=== PATIENT | female | born 1950 | race Caucasian/White ===

== ENCOUNTER → 2017-01-27 | Outpatient (CLI) | payer MEDICARE, MEDICAID ==
[~2017-01-27] MED LIST: AMITRIPTYLINE H25 M1 PO; AMLODIPINE5 MG PO; AMOXICILLIN 8751 TAB PO; ANTI-DIARRHEAL2 MG PO; ASPIR-LOW81 MG PO; ASPIRIN E.C. 8181 MG PO; ATENOLOL; BENTYL 20MG20 MG/TAB PO; BIOTIN1000 MCG PO; CARDI-OMEGA1000 MG PO; CARTIA XT240 MG PO; CARVEDILOL12.5 MG PO; CENTRUM SILVER1 TA1 PO; COREG 25MG25 MG/TAB PO; CORICIDIN COUGH1 TAB PO; COZAAR 50MG50 MG/TAB PO; DOXYCYCLINE 10100 MG PO; FISH OIL CONC1000 MG PO; GARLIC SUPPLEM300 MG; GLUCOPHAGE1000 MG PO; HCTZ 25MG25 MG PO; IBU800 M1 PO; LISINOPRIL10 MG PO; METFORMIN500 MG PO; NITROQUICK0.4 MG; NITROQUICK0.4 MG SL; NORCO 325 MG-51 TAB PO; NORVASC 10MG10 MG PO; NORVASC2.5 MG PO; OCUFLOX OPHTH DR5 ML OD; ONGLYZA5 MG PO; PAMELOR 25MG25 MG PO; PAMINE2.5 MG PO; PRILOSEC; PRILOSEC 20MG20 MG PO; QUESTRAN4 GM/9 GM PO; TYLENOL W/COD1 UDTAB PO; VIBERZI75 MG PO; VITAMIN B1250 MCG; ZOFRAN 4MG T4 MG/TAB PO
== END ==
LOC: MC.RAD 09:55
DX: Z12.31 Encounter for screening mammogram for malignant neoplasm of breast (principal); Z98.890 Other specified postprocedural states

== ENCOUNTER 2018-01-21 09:52 | Emergency (ER) | payer MEDICARE, MEDICAID ==
[~2018-01-21] VITALS: Ht 170.2 cm; Wt 88.2 kg
[2018-01-21] MEDS ORDERED: ASPIRIN 81M81 MG/TA2 PO (10:20)
[2018-01-21 10:37] LABS: BASO % 0.4 % (0.0-2.0); EOS # 0.1 (0.0-0.7); EOS % 2.8 % (0-4.0); GRAN # 2.9 (1.4-6.5); GRAN % 57.6 % (42.2-75.2); HEMOGLOBIN 12.7 g/dl (12.5-16.0); LYMPH # 1.3 (1.2-3.4); LYMPH % 26.1 % (20.0-51.0); MEAN CELL VOLUME 83 fl (80.0-100.0); MEAN CORPUSCULAR HEMOGLOBIN 29 pg (27.0-31.0); MEAN CORPUSCULAR HGB CONC 35 g/dl (33.0-37.0); MEAN PLATELET VOLUME 11.6 fl (7.4-10.4); MONO # 0.6 (0.1-0.6); MONO % 12.7 % (1.7-9.3); PLATELET COUNT 176 K/mm3 (130-400); RED BLOOD COUNT 4.43 M/mm3 (4.10-5.30)
[2018-01-21 10:39] LABS: HEMATOCRIT 36.8 % (37.0-47.0)
[2018-01-21 10:48] LABS: ALANINE AMINOTRANSFERASE 25 U/L (9-52); ALBUMIN 3.8 gm/dL (3.5-5.0); ALKALINE PHOSPHATASE 89 U/L (50-136); ANION GAP 14 mmol/L (7-16); AST,SGOT 27 U/L (15-37); BILIRUBIN,TOTAL 0.5 mg/dL (0.0-1.0); BLOOD UREA NITROGEN 25 mg/dL (7-17); C-REACTIVE PROTEIN 1.8 mg/dL (0.0-0.9); CALCIUM 9.5 mg/dL (8.4-10.2); CARBON DIOXIDE 25 mmol/L (22-30); CHLORIDE 99 mmol/L (98-107); CREATININE, serum 0.92 mg/dL (0.52-1.25); GLUCOSE 300 mg/dL (74-106); SODIUM 138 mmol/L (137-145); TOTAL PROTEIN 7.7 gm/dL (6.4-8.2)
[2018-01-21 11:01] LABS: TROPONIN-I < 0.012 ng/mL (0.000-0.034)
[2018-01-21] MEDS ORDERED: PREDNISONE20 MG PO (11:50)
[2018-01-21] MEDS ORDERED: ZITHROMAX 250M250 MG PO (11:50)
[2018-01-21 12:20] VITALS: BP 137/75; PULSE 64; TEMP 98.1
== END 2018-01-21 12:20 | disposition home or self-care (01) ==
LOC: COL.ER 09:52
PROVIDERS: Emergency Medicine
DX: J20.9 Acute bronchitis, unspecified (principal); E11.9 Type 2 diabetes mellitus without complications; I10 Essential (primary) hypertension; Z79.84 Long term (current) use of oral hypoglycemic drugs; Z79.82 Long term (current) use of aspirin
CPT/HCPCS: J7512

== ENCOUNTER → 2018-02-06 | Outpatient (CLI) | payer MEDICARE, MEDICAID ==
[~2018-02-06] MED LIST changes: +ASPIRIN 81M81 MG/TA2 PO; +PREDNISONE20 MG PO; +ZITHROMAX 250M250 MG PO
== END ==
LOC: MC.RAD 10:20
DX: Z12.31 Encounter for screening mammogram for malignant neoplasm of breast (principal)

== ENCOUNTER 2018-03-21 22:48 | Emergency (ER) | payer MEDICARE, MEDICAID ==
[~2018-03-21] VITALS: Ht 170.2 cm; Wt 90.0 kg
[2018-03-21 22:57] VITALS: TEMP 97.7
[2018-03-22] MEDS ORDERED: TYLENOL W/COD1 UDTAB PO (01:03)
[2018-03-22 01:35] VITALS: BP 159/69; PULSE 65
== END 2018-03-22 01:38 | disposition home or self-care (01) ==
LOC: COL.ER 22:48
DX: S80.02XA Contusion of left knee, initial encounter (principal); E11.9 Type 2 diabetes mellitus without complications; I10 Essential (primary) hypertension; Z79.82 Long term (current) use of aspirin; Z79.84 Long term (current) use of oral hypoglycemic drugs; W10.9XXA Fall (on) (from) unspecified stairs and steps, initial encounter; Y92.009 Unspecified place in unspecified non-institutional (private) residence as the place of occurrence of the external cause

== ENCOUNTER 2018-06-16 13:29 | Emergency (ER) | payer MEDICARE, MEDICAID ==
[~2018-06-16] VITALS: Ht 170.2 cm; Wt 86.4 kg
[2018-06-16 13:38] VITALS: BP 143/94; TEMP 97.9
[2018-06-16] MEDS ORDERED: LOTRISONE 0.05%1 CRE TOP (13:55)
[2018-06-16] MEDS ORDERED: PROZAC 10MG10 MG PO (13:56)
[2018-06-16 14:46] LABS: BASO % 0.5 % (0.0-2.0); EOS # 0.1 (0.0-0.7); EOS % 2.1 % (0-4.0); GRAN # 4.3 (1.4-6.5); GRAN % 64.7 % (42.2-75.2); HEMATOCRIT 39.7 % (37.0-47.0); HEMOGLOBIN 13.3 g/dl (12.5-16.0); LYMPH # 1.6 (1.2-3.4); LYMPH % 24.1 % (20.0-51.0); MEAN CELL VOLUME 83 fl (80.0-100.0); MEAN CORPUSCULAR HEMOGLOBIN 28 pg (27.0-31.0); MEAN CORPUSCULAR HGB CONC 34 g/dl (33.0-37.0); MEAN PLATELET VOLUME 11.5 fl (7.4-10.4); MONO # 0.6 (0.1-0.6); MONO % 8.3 % (1.7-9.3); PLATELET COUNT 201 K/mm3 (130-400); RED BLOOD COUNT 4.77 M/mm3 (4.10-5.30); REDCELL DISTRIBUTION WIDTH-CV 13.5 % (11.5-14.5)
[2018-06-16 15:02] LABS: ALANINE AMINOTRANSFERASE 28 U/L (9-52); ALBUMIN 4.3 gm/dL (3.5-5.0); ALKALINE PHOSPHATASE 66 U/L (50-136); ANION GAP 13 mmol/L (7-16); AST,SGOT 35 U/L (15-37); BILIRUBIN,TOTAL 0.4 mg/dL (0.0-1.0); BLOOD UREA NITROGEN 19 mg/dL (7-17); CALCIUM 9.2 mg/dL (8.4-10.2); CARBON DIOXIDE 26 mmol/L (22-30); CHLORIDE 98 mmol/L (98-107); CREATININE, serum 0.82 mg/dL (0.52-1.25); GLUCOSE 160 mg/dL (74-106); LIPASE 118 U/L (23-300); POTASSIUM 3.9 mmol/L (3.4-5.0); SODIUM 137 mmol/L (137-145)
[2018-06-16 15:16] LABS: TROPONIN-I < 0.012 ng/mL (0.000-0.034)
[2018-06-16] MEDS ORDERED: FLOVENT 110MCG7.9 GM IH (15:57)
[2018-06-16] MEDS ORDERED: DOXYCYCLINE 10100 MG PO (15:57)
[2018-06-16 16:18] VITALS: PULSE 69
== END 2018-06-16 16:21 | disposition home or self-care (01) ==
LOC: COL.ER 13:29
PROVIDERS: Emergency Medicine
DX: J40 Bronchitis, not specified as acute or chronic (principal); E11.9 Type 2 diabetes mellitus without complications; I10 Essential (primary) hypertension; R05 Cough; R07.9 Chest pain, unspecified; Z90.49 Acquired absence of other specified parts of digestive tract; Z90.710 Acquired absence of both cervix and uterus; Z79.84 Long term (current) use of oral hypoglycemic drugs; Z79.82 Long term (current) use of aspirin

== ENCOUNTER 2018-12-07 14:52 | Emergency (ER) | payer MEDICARE, MEDICAID ==
[~2018-12-07] VITALS: Ht 170.2 cm; Wt 90.0 kg
[~2018-12-07 14:52] MED LIST changes: +FLOVENT 110MCG7.9 GM IH; +LOTRISONE 0.05%1 CRE TOP; +PROZAC 10MG10 MG PO
[2018-12-07 15:03] VITALS: TEMP 98
[2018-12-07 15:47] LABS: BASO % 0.4 % (0.0-2.0); EOS # 0.1 (0.0-0.7); EOS % 2.3 % (0-4.0); GRAN # 2.8 (1.4-6.5); GRAN % 50.3 % (42.2-75.2); HEMOGLOBIN 11.6 g/dl (12.5-16.0); LYMPH # 1.9 (1.2-3.4); LYMPH % 33.7 % (20.0-51.0); MEAN CELL VOLUME 86 fl (80.0-100.0); MEAN CORPUSCULAR HEMOGLOBIN 29 pg (27.0-31.0); MEAN CORPUSCULAR HGB CONC 34 g/dl (33.0-37.0); MEAN PLATELET VOLUME 11.1 fl (7.4-10.4); MONO # 0.7 (0.1-0.6); MONO % 12.8 % (1.7-9.3); PLATELET COUNT 168 K/mm3 (130-400); RED BLOOD COUNT 4.01 M/mm3 (4.10-5.30); REDCELL DISTRIBUTION WIDTH-CV 13.6 % (11.5-14.5)
[2018-12-07 15:54] LABS: HEMATOCRIT 34.4 % (37.0-47.0)
[2018-12-07 16:04] LABS: ALANINE AMINOTRANSFERASE 20 U/L (9-52); ALBUMIN 3.9 gm/dL (3.5-5.0); ALKALINE PHOSPHATASE 73 U/L (50-136); ANION GAP 6 mmol/L (7-16); AST,SGOT 29 U/L (15-37); BILIRUBIN,TOTAL 0.2 mg/dL (0.0-1.0); BLOOD UREA NITROGEN 23 mg/dL (7-17); C-REACTIVE PROTEIN 0.8 mg/dL (0.0-0.9); CALCIUM 9.3 mg/dL (8.4-10.2); CARBON DIOXIDE 28 mmol/L (22-30); CHLORIDE 102 mmol/L (98-107); CREATININE, serum 0.82 mg/dL (0.52-1.25); GLUCOSE 124 mg/dL (74-106); POTASSIUM 4.4 mmol/L (3.4-5.0); SODIUM 136 mmol/L (137-145); TOTAL PROTEIN 7.2 gm/dL (6.4-8.2)
[2018-12-07 16:12] LABS: TROPONIN-I < 0.012 ng/mL (0.000-0.035)
[2018-12-07] MEDS ORDERED: FLEXERIL 1010 MG/TAB PO (16:47)
[2018-12-07] MEDS ORDERED: NAPROXEN 3375 MG/TAB PO (16:47)
[2018-12-07 16:57] VITALS: BP 171/86; PULSE 68
== END 2018-12-07 16:58 | disposition home or self-care (01) ==
LOC: COL.ER 14:52
PROVIDERS: Emergency Medicine
DX: M79.602 Pain in left arm (principal); E11.9 Type 2 diabetes mellitus without complications; I10 Essential (primary) hypertension; Z90.89 Acquired absence of other organs; Z90.49 Acquired absence of other specified parts of digestive tract; Z88.2 Allergy status to sulfonamides; Z79.84 Long term (current) use of oral hypoglycemic drugs; Z79.82 Long term (current) use of aspirin
CPT/HCPCS: J1885

== ENCOUNTER 2019-02-01 14:45 | Outpatient (RCR) | payer MEDICARE, MEDICAID ==
[~2019-02-01 14:45] MED LIST changes: +FLEXERIL 1010 MG/TAB PO; +NAPROXEN 3375 MG/TAB PO
== END 2019-02-02 10:21 | disposition home or self-care (01) ==
LOC: MKS.ESL.PT 14:45
DX: M79.602 Pain in left arm (principal)

== ENCOUNTER → 2019-03-09 | Outpatient (CLI) | payer MEDICARE, MEDICAID | LOC: MC.RAD 13:49 | DX: Z12.31 Encounter for screening mammogram for malignant neoplasm of breast (principal) ==

== ENCOUNTER 2020-01-05 11:15 | Outpatient (RCR) | payer MEDICARE, MEDICAID | END 2020-03-09 | disposition still patient (30) | LOC: MKS.ESL.PT | DX: Z98.890 Other specified postprocedural states (principal) ==

== ENCOUNTER → 2020-05-10 | Outpatient (CLI) | payer MEDICARE, MEDICAID | LOC: COL.RAD 09:23 | DX: J84.10 Pulmonary fibrosis, unspecified (principal); R10.32 Left lower quadrant pain; Z90.710 Acquired absence of both cervix and uterus; Z90.49 Acquired absence of other specified parts of digestive tract | CPT/HCPCS: Q9967 ==

== ENCOUNTER 2020-09-29 09:00 | Outpatient (RCR) | payer MEDICARE, MEDICAID | END 2020-12-28 | disposition home or self-care (01) | LOC: MKS.ESL.PT | DX: M25.512 Pain in left shoulder (principal) ==

== ENCOUNTER 2020-10-04 09:30 | Outpatient (RCR) | payer MEDICARE, MEDICAID | END 2020-10-16 | disposition home or self-care (01) | LOC: MKS.ESL.PT | DX: M25.512 Pain in left shoulder (principal) | CPT/HCPCS: G0283-GP ==

== ENCOUNTER 2021-03-08 10:30 | Outpatient (RCR) | payer MEDICARE, MEDICAID | END 2021-03-15 | disposition still patient (30) | LOC: MKS.ESL.PT | DX: M25.512 Pain in left shoulder (principal); Z98.890 Other specified postprocedural states ==

== ENCOUNTER → 2022-01-16 | Outpatient (CLI) | payer MEDICARE, MEDICAID | LOC: COL.RAD 06:50 | DX: J47.9 Bronchiectasis, uncomplicated (principal); J84.9 Interstitial pulmonary disease, unspecified; R91.8 Other nonspecific abnormal finding of lung field ==